=== PATIENT | female | born 1995 | race Caucasian/White ===

== ENCOUNTER 2017-09-26 08:18 | Emergency (ER) | payer SELFPAY ==
[~2017-09-26] VITALS: Ht 170.2 cm; Wt 59.0 kg
[~2017-09-26 08:18] MED LIST: ACHD5005 PO; CYCL-97 PO; CYCL15CA19 PO; DCS100C PO; FRS325T PO; HYDR-757 PO; IBP600T1 PO; IBUP-1773 PO; NAPR-1071 PO; NITR-65 PO; NORG1TAB14 PO; ONDA8TAB9 PO; OSLT75CRX PO; OXYC-12 PO; OXYC-471 PO; PEDI100T PO; PREN-93 PO; PROM25TA14 PO; TRAM-42 PO
--- OUTSIDE RECORDS SUMMARY | 2017-09-26 08:24 | XMS REPORT ---
Author Author EUNICE ROBERTS Organization [employer] Address Unknown Phone Unavailable Care Team Providers Care Take Off Worker Name Role Phone EUNICE ROBERTS CP Unavailable Allergies, Adverse Reactions, Alerts Substance Reaction Event Type N.K.D.A. Info Not Available Non Drug Allergy Problems Problem Type Condition Code Onset Dates Condition Status Problem General counseling for prescription of oral contraceptives V25.01 Active Problem Counseling on other sexually transmitted diseases V65.45 Active Problem Screening examination for venereal disease V74.5 Active Assessment Sore throat J02.9 Active Assessment Pharyngitis, unspecified etiology J02.9 Active Medications Medication Code System Code Instructions Start Date End Date Status Dosage Ortho-Novum (28 [facility] [address]-09 1-35 mg-mcg Oct 11, 2011 1 tablet by Oral route 1 time per daystart Monday after next menses Procedures Procedure Coding System Code Date Office Visit, Est Pt., Level 3 CPT-4 97896 Jun 03, 2016 STREP A ASSAY W/OPTIC CPT-4 31437 Jun 03, 2016 Vital Signs Date/Time: Jun 03, 2016 Cardiac Monitoring Heart Rate 84 bpm Weight 124.6 lbs Height 66 in BMI 20.11 Index Blood Pressure Diastolic 70 mmHg Blood Pressure Systolic 104 mmHg Results Name Result Date Reference Range Unit Abnormality Flag STREP A (IN HOUSE) ----STREP A NEG [id number] ----Control + [id number] ----Lot # [id number] ----Exp date 02/09/201820160603 Summary Purpose [employer] Submission
--- OUTSIDE RECORDS SUMMARY | 2017-09-26 08:24 | XMS REPORT ---
Author Author SNEHAL ZAMBRANO [facility] Address Unknown Care Team Providers Care Alteration Manager Name Role Phone JUAN MANUEL SNEHAL Unavailable PROBLEMS Type Condition ICD9-CM Code NPA22-UG Code Onset Dates Condition Status SNOMED Code Problem Dental caries K02.9 Active 49818736 Problem GERD (gastroesophageal reflux disease) K21.9 Active 455141128 Problem Encounter for dental examination Z01.20 Active 859411485 Problem Screen for STD (sexually transmitted disease) Z11.3 Active 233858366 Problem Encounter for screening for malignant neoplasm of cervix Z12.4 Active 382466399 Problem Encounter for screening breast examination Z12.39 Active 327737976 Problem Encounter for well woman exam with routine gynecological exam Z01.419 Active [id number] ALLERGIES No Known Allergies SOCIAL HISTORY Never Assessed PLAN OF CARE Activity Details Follow Up prn Reason:GILBERT VITAL SIGNS Blood pressure systolic 116 mmHg 2016-10-04 Blood pressure diastolic 65 mmHg 2016-10-04 MEDICATIONS No Known Medications RESULTS No Results PROCEDURES Procedure Date Ordered Result Body Site LTD ORAL EVALUATION - PROBLEM FOCUS Oct 04, 2016 INTRAORL-PERIAPICAL 1 FILM [id number] Oct 04, 2016 IMMUNIZATIONS No Known Immunizations MEDICAL (GENERAL) HISTORY Type Description Date Medical History pneumonia Medical History bronchitis Surgical History ovarian cyst resection 2015 Surgical History right oopherectomy 2015 Surgical History section x2 Hospitalization History pneumonia 2010
--- OUTSIDE RECORDS SUMMARY | 2017-09-26 08:25 | XMS REPORT ---
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 Info Not Available Non Drug Allergy Problems Problem Type Condition Code Onset Dates Condition Status Assessment Dental caries K02.9 Active Assessment Screen for STD (sexually transmitted disease) Z11.3 Active Assessment Encounter for screening breast examination Z12.39 Active Problem Encounter for screening for malignant neoplasm of cervix Z12.4 Active Problem Screen for STD (sexually transmitted disease) Z11.3 Active Problem Encounter for well woman exam with routine gynecological exam Z01.419 Active Assessment Encounter for well woman exam with routine gynecological exam Z01.419 Active Assessment Encounter for screening for malignant neoplasm of cervix Z12.4 Active Problem Encounter for screening breast examination Z12.39 Active Problem Dental caries K02.9 Active Medications No Known Medications Procedures Procedure Coding System Code Date CULTURE, BACTERIA, OTHER CPT-4 42334 Jun 15, 2016 TRICHOMONAS ASSAY W/OPTIC CPT-4 85339 Jun 15, 2016 No Charge CPT-4 00446 Jun 15, 2016 Office Visit, Est Pt., Level 3 CPT-4 51589 Jun 15, 2016 AGUIRRE VAG, DNA, DIR PROBE CPT-4 14691 Jun 15, 2016 SPECIMEN HANDLING CPT-4 78135 Jun 15, 2016 Vital Signs Date/Time: Jun 15, 2016 Blood Pressure Systolic 110 mmHg Cardiac Monitoring Heart Rate 80 bpm Weight 117 lbs Blood Pressure Diastolic 70 mmHg Results Name Result Date Reference Range Unit Abnormality Flag PAP TEST, HPV IF ASCUS ----. . [id number] CULTURE, GENITAL ----Genital Culture, Routine Final report [id number] TRICHOMONAS (IN HOUSE) ----TRICHOMONAS Negative [id number] ----Control + [id number] ----Lot # [id number] ----Exp date [id number] BACTERIAL VAGINOSIS (IN HOUSE) ----Exp date [id number] ----Control + [id number] ----Lot # [id number] ----RESULTS Negative [id number] GC/CHLAM PROBE (STATE) PDF Report ----PDF Report1 [facility] [id number] Summary Purpose [employer] Submission
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
[2017-09-26] MEDS ORDERED: LACTATED RINGERS 1,000 ML IV ONE (08:42)
[2017-09-26] MEDS ORDERED: ONDANSETRON 4 MG/2 ML (SDV) Z0FRAN IVP ONE (08:45)
[2017-09-26] MEDS ORDERED: KETOROLAC 30 MG/ML VIAL IVP ONE (08:45)
--- NOTE | 2017-09-26 08:51 | ED Abdominal Pain ---
General Chief Complaint: Abdominal/GI Problems Stated Complaint: LOWER ABD PAIN Source of Information: Patient, Other Exam Limitations: No Limitations History of Present Illness Date Seen by Provider: Sep 26, 2017 Time Seen by Provider: 08:41 Initial Comments Patient presents ER by private conveyance with a chief complaint the past 3 or 4 days of progressively worsening symptoms from her chronic problem of abdominal pain nausea vomiting and diarrhea and heartburn. She says she's had this for the past 3 or 4 years and she is seen about a month and a half ago at the [facility] and they told her a list of things that might be check some urine but not really tolerating anything else until her follow-up if it got worse. She came in today because she been using omeprazole 3 times a day and that was controlling her symptoms but she does not feel is helping anymore and she is started to feel little dehydrated and having a lot of abdominal pain especially in her superpubic region. She's having nonbloody diarrhea and nausea with nonbloody emesis. She's had some chills a few times but no documented fever. Allergies and Home Medications Allergies Coded Allergies: No Known Drug Allergies (Unverified , 11/16/09) Home Medications Naproxen 500 Mg Tablet, 500 MG PO BID PRN for PAIN, #30 Prescribed by: OLIVIA CRYSTAL on 06/17/16 1434 Norgestimate-Ethinyl Estradiol 1 Each Tablet, 1 EACH PO UD, #1 Take per package directions Prescribed by: NORMA LOYA on 06/24/16 1615 Oxycodone HCl/Acetaminophen 1 Each Tablet, 1 EACH PO Q6H PRN for PAIN, #14 Prescribed by: NORMA LOYA on 06/24/16 1615 Oxycodone HCl/Acetaminophen 1 Each Tablet, 1 EACH PO Q6H PRN for PAIN, #12 Ref 0 Prescribed by: NORMA LOYA on 07/01/16 1017 Promethazine HCl 25 Mg Tablet, 25 MG PO Q8H PRN for NAUSEA/VOMITING, #14 Prescribed by: NORMA LOYA on 07/01/16 1017 Tramadol HCl 50 Mg Tablet, 50 MG PO Q6H PRN for PAIN, #14 Prescribed by: OLIVIA CRYSTAL on 06/17/16 1434 Review of Systems Constitutional: chills, No diaphoresis, No fever, No malaise EENTM: No Symptoms Reported Respiratory: Denies Cough, Denies Shortness of Air Cardiovascular: Denies Chest Pain, Denies Palpitations Gastrointestinal: See HPI, Denies Abdomen Distended, Abdominal Pain, Denies Constipated, Diarrhea, Poor Fluid Intake, Vomiting Genitourinary: Burning, Denies Discharge Musculoskeletal: No back pain, No joint pain Skin: No pruritus, No rash Psychiatric/Neurological: Denies Headache, Denies Numbness, Denies Paresthesia Past Lfzggcs-Ywfwkm-Aawpux Hx Patient Social History Alcohol Use: Denies Use Recreational Drug Use: No Smoking Status: Current Everyday Smoker Recent Foreign Travel: No Contact w/Someone Who Travel: No Recent Hopitalizations: Yes (ER VISIT) Immunizations Up To Date Tetanus Booster (TDap): Less than 5yrs Date of Influenza Vaccine: Jun 22, 2013 Surgeries History of Surgeries: Yes (RIGHT OVERY AND FALLOPIAN TUBE REMOVED) Surgeries: Section Respiratory History of Respiratory Disorde: No Cardiovascular History of Cardiac Disorders: No Neurological History of Neurological Disord: No Reproductive System Hx Reproductive Disorders: Yes Female Reproductive Disorders: Ovarian Cyst [employer] History: IUD Genitourinary Genitourinary Disorders: Bladder Infection Gastrointestinal History of Gastrointestinal Di: No Musculoskeletal History of Musculoskeletal Dis: Yes (scoliosis) Endocrine History of Endocrine Disorders: No Cancer History of Cancer: No Psychosocial History of Psychiatric Problem: No Integumentary History of Skin or Integumenta: No Blood Transfusions History of Blood Disorders: No Adverse Reaction to a Blood Tr: No Family Medical History Significant Family History: Cancer, Diabetes Family Medial History: Cancer GRANDPARENTS Family history: Arthritis 03 FATHER 03 MOTHER Family history: Diabetes mellitus 03 MOTHER Family history: Hypertension 03 MOTHER Family history: Thyroid disorder 03 MOTHER Stroke GRANDPARENTS No Family History of: Cataract Congestive heart failure Family history: Asthma Family history: Gastrointestinal disease History of - respiratory disease Psychotic disorder Physical Exam Vital Signs VS - Last 72 Hours, by Label 09/26/17 08:31 Temp 98.1 Pulse 94 Resp 18 B/P (MAP) 108/61 (77) Pulse Ox 98 O2 Delivery Room Air Capillary Refill : General Appearance: WD/WN, no apparent distress HEENT: PERRL/EOMI, pharynx normal (mildly dry) Neck: non-tender, supple, normal inspection Respiratory: chest non-tender, lungs clear, normal breath sounds Cardiovascular: normal peripheral pulses, regular rate, rhythm, no edema Peripheral Pulses: 2+ Radial Pulses (R), 2+ Radial Pulses (L) Gastrointestinal: normal bowel sounds, no organomegaly, guarding, No rebound, tenderness (Rosas's sign positive and tenderness right upper, left upper and left lower quadrants. Some suprapubic tenderness to palpation as well. No obvious hernia.) Progress/Results/Core Measures Results/Orders Lab Results Laboratory Tests Test 09/26/17 08:48 09/26/17 09:04 Range/Units Urine Color YELLOW Urine Clarity CLEAR Urine pH 7 5-9 Urine Specific [place] 1.015 L 1.016-1.022 Urine Protein NEGATIVE NEGATIVE Urine Glucose (UA) NEGATIVE NEGATIVE Urine Ketones NEGATIVE NEGATIVE Urine Nitrite NEGATIVE NEGATIVE Urine Bilirubin NEGATIVE NEGATIVE Urine Urobilinogen NORMAL NORMAL MG/DL Urine Leukocyte Esterase NEGATIVE NEGATIVE Urine RBC (Auto) NEGATIVE NEGATIVE Urine RBC NONE /HPF Urine WBC RARE /HPF Urine Squamous Epithelial Cells 2-5 /HPF Urine Crystals NONE /LPF Urine Bacteria NEGATIVE /HPF Urine Casts NONE /LPF Urine Mucus NEGATIVE /LPF Urine Culture Indicated NO Urine Test NEGATIVE NEGATIVE White Blood Count 10.1 4.3-11.0 10^3/uL Red Blood Count 4.69 4.35-5.85 10^6/uL Hemoglobin 13.7 11.5-16.0 G/DL Hematocrit 39 35-52 % Mean Corpuscular Volume 83 80-99 FL Mean Corpuscular Hemoglobin 29 25-34 PG Mean Corpuscular Hemoglobin Concent 35 32-36 G/DL Red Cell Distribution Width 12.4 10.0-14.5 % Platelet Count 263 130-400 10^3/uL Mean Platelet Volume 11.0 H 7.4-10.4 FL Neutrophils (%) (Auto) 71 42-75 % Lymphocytes (%) (Auto) 21 12-44 % Monocytes (%) (Auto) 6 0-12 % Eosinophils (%) (Auto) 1 0-10 % Basophils (%) (Auto) 0 0-10 % Neutrophils # (Auto) 7.2 1.8-7.8 X 10^3 Lymphocytes # (Auto) 2.1 1.0-4.0 X 10^3 Monocytes # (Auto) 0.7 0.0-1.0 X 10^3 Eosinophils # (Auto) 0.1 0.0-0.3 10^3/uL Basophils # (Auto) 0.0 0.0-0.1 10^3/uL Sodium Level 139 135-145 MMOL/L Potassium Level 3.7 3.6-5.0 MMOL/L Chloride Level 106 98-107 MMOL/L Carbon Dioxide Level 24 21-32 MMOL/L Anion Gap 9 5-14 MMOL/L Blood Urea Nitrogen 12 7-18 MG/DL Creatinine 0.75 0.60-1.30 MG/DL Estimat Glomerular Filtration Rate > 60 BUN/Creatinine Ratio 16 Glucose Level 90 70-105 MG/DL Calcium Level 9.0 8.5-10.1 MG/DL Magnesium Level 2.0 1.8-2.4 MG/DL Total Bilirubin 0.3 0.1-1.0 MG/DL Aspartate Amino Transf (AST/SGOT) 19 5-34 U/L Alanine Aminotransferase (ALT/SGPT) 22 0-55 U/L Alkaline Phosphatase 62 40-136 U/L C-Reactive Protein High Sensitivity 0.01 0.00-0.50 MG/DL Total Protein 7.0 6.4-8.2 GM/DL Albumin 4.2 3.2-4.5 GM/DL Lipase 13 8-78 U/L My Orders Orders - SANTO LOJA Ct Abdomen/Pelvis W (09/26/17 08:42) Cbc With Automated Diff (09/26/17 08:42) Comprehensive Metabolic Panel (09/26/17 08:42) Hs C Reactive Protein (09/26/17 08:42) Hcg,Qualitative Urine (09/26/17 08:42) Magnesium (09/26/17 08:42) Ua Culture If Indicated (09/26/17 08:42) Saline Lock/Iv-Start (09/26/17 08:42) Lactated Ringers (Lr 1000 Ml Iv Solution (09/26/17 08:42) Ketorolac Injection (Toradol Injection) (09/26/17 08:45) Ondansetron Injection (Zofran Injectio (09/26/17 08:45) Iohexol Injection (Omnipaque 350 Mg/Ml 1 (09/26/17 09:00) Sodium Chloride Flush (Catheter Flush Sy (09/26/17 09:00) Lipase (09/26/17 08:51) Urine Bedside (09/26/17 09:15) Medications Given in ED Current Medications Medications Dose Ordered Sig/Odilia Route Start Time Stop Time Status Last Admin Dose Admin Iohexol 100 ml ONCE ONCE IV 09/26/17 09:00 09/26/17 09:37 DC 09/26/17 09:39 100 ML Ketorolac Tromethamine 15 mg ONCE ONCE IVP 09/26/17 08:45 09/26/17 08:46 DC 09/26/17 09:01 15 MG Lactated Ringer's 1,000 ml @ 0 mls/hr Q0M ONCE IV 09/26/17 08:42 09/26/17 08:46 DC 09/26/17 09:01 1,000 MLS/HR Ondansetron HCl 4 mg ONCE ONCE IVP 09/26/17 08:45 09/26/17 08:46 DC 09/26/17 09:00 4 MG Vital Signs/I&O Vital Sign - Last 12Hours 09/26/17 08:31 Temp 98.1 Pulse 94 Resp 18 B/P (MAP) 108/61 (77) Pulse Ox 98 O2 Delivery Room Air Progress Note #1: Time: 08:50 Progress Note History is not classic for gallbladder however colitis could also be in the differential so we'll get a CT scan as opposed to an ultrasound. We'll do with contrast which can evaluate the colon. Progress Note #2: Time: 10:39 Progress Note No evidence of infectious or inflammatory cause of her symptoms. Adhesions may be part of her problems however there is no evidence of any bowel obstruction or herniation at this time on a CT scan. We'll give her some symptomatic medications and recommend she follow up for endoscopy with her primary care physician. Diagnostic Imaging Diagonstic Imaging: CT Plain Films/CT/US/NM/MRI: abdomen, pelvis (with contrast) Comments VIA [facility]. [place], [place] NAME: MARIANNA ZEPEDA [facility] REC#: [id number] PT STATUS: REG ER : 1995 PHYSICIAN: SANTO LOJA MD ADMIT DATE: 09/26/17/ER Draft Date of Exam:09/26/17 CT ABDOMEN/PELVIS W PROCEDURE: CT abdomen and pelvis with contrast. TECHNIQUE: Multiple contiguous axial images were obtained through the abdomen and pelvis after administration of intravenous contrast. INDICATION: Sharp abdominal pain in the periumbilical region as well as nausea and diarrhea. Comparison is made with prior study from 06/17/2016. The lung bases are clear. No focal liver abnormality is identified. The gallbladder is unremarkable. The pancreas and spleen are unremarkable. No adrenal mass is detected. The kidneys are unremarkable. The aorta is nonaneurysmal. The appendix is not well-visualized due to a positive intra-abdominal fat. However, no definite acute inflammatory process is seen. The small and large bowel loops are normal caliber. There is no ascites. The bladder is unremarkable. There is a small follicle involving the left ovary. An IUD is located within the uterus. IMPRESSION: No acute abnormality is identified. Dictated on workstation # [id number] Dict: 09/26/17 0953 Trans: 09/26/17 1016 [facility] [id number] Interpreted by: SNEA JOHNSTON MD Electronically signed by: Reviewed: Reviewed by Me Departure Impression Impression: Primary Impression: Nausea and vomiting Qualified Codes: R11.2 - Nausea with vomiting, unspecified Additional Impression: Diarrhea in adult patient Disposition: 01 HOME, SELF-CARE Condition: Improved Departure-Patient Inst. Decision time for Depature: 10:45 Referrals: COLLETTE BROWN DO [facility] (PCP/Family) Primary Care Physician Patient Instructions: Irritable Bowel Syndrome (DC) Add. Discharge Instructions: Review the handout on irritable bowel syndrome and modify her diet try and avoid things that might irritate your colon. Follow up with your primary care physician and get set up to do colonoscopy and endoscopy for final diagnosis. If you have nausea use the Zofran 1 tablet every 6 hours as needed. If you're having the nausea and diarrhea I suggest the next month we trial hyoscyamine one tablet 30 minutes prior to eating. If you begin to have fevers you should return to care. All discharge instructions reviewed with patient and/or family. Voiced understanding. Scripts Ondansetron (Ondansetron Odt) 4 Mg Tab.rapdis 4 MG PO Q6H Y for NAUSEA/VOMITING, #20 TAB 0 Refills Prov: SANTO LOJA 09/26/17 Hyoscyamine Sulfate (Hyoscyamine Sulfate) 0.125 Mg Tab.rapdis 0.125 MG PO QIDACHS for 30 Days, #120 TAB 0 Refills Prov: SATNO LOJA 09/26/17 Copy Copies To 1: COLLETTE BROWN TITUS J Sep 26, 2017 08:51
[2017-09-26 08:58] LABS: BILIRUBIN,URINE NEGATIVE (NEGATIVE); CLARITY,URINE CLEAR; COLOR,URINE YELLOW; GLUCOSE, URINE (UA) NEGATIVE (NEGATIVE); KETONES,URINE NEGATIVE (NEGATIVE); LEUKOCYTE ESTERASE ,URINE NEGATIVE (NEGATIVE); NITRITE,URINE NEGATIVE (NEGATIVE); PH,URINE 7 (5-9); PROTEIN,URINE NEGATIVE (NEGATIVE); UROBILINOGEN,URINE NORMAL (NORMAL)
[2017-09-26] MEDS ORDERED: IOHEXOL 350 MG/ML 100 ML (OMNIPAQUE 350) VIAL IV ONE (09:00)
[2017-09-26] MEDS ORDERED: CATHETER FLUSH 10 ML SYR IV PRN (09:00)
[2017-09-26 09:05] LABS: BACTERIA,URINE NEGATIVE /HPF; WBC,URINE RARE /HPF
[2017-09-26 09:10] LABS: BASOPHILS % (AUTO) 0 % (0-10); EOSINOPHILS # (AUTO) 0.1 10^3/uL (0.0-0.3); EOSINOPHILS % (AUTO) 1 % (0-10); HEMATOCRIT 39 % (35-52); HEMOGLOBIN 13.7 G/DL (11.5-16.0); LYMPHOCYTES # (AUTO) 2.1 X 10^3 (1.0-4.0); LYMPHOCYTES % (AUTO) 21 % (12-44); MEAN CORPUSCULAR HEMOGLOBIN 29 PG (25-34); MEAN CORPUSCULAR HGB CONC 35 G/DL (32-36); MEAN CORPUSCULAR VOLUME 83 FL (80-99); MONOCYTES # (AUTO) 0.7 X 10^3 (0.0-1.0); MONOCYTES % (AUTO) 6 % (0-12); NEUTROPHILS # (AUTO) 7.2 X 10^3 (1.8-7.8); NEUTROPHILS % (AUTO) 71 % (42-75); PLATELET COUNT 263 10^3/uL (130-400); RED BLOOD COUNT 4.69 10^6/uL (4.35-5.85); RED CELL DISTRIBUTION WIDTH 12.4 % (10.0-14.5); WHITE BLOOD COUNT 10.1 10^3/uL (4.3-11.0)
[2017-09-26 09:49] LABS: ALANINE AMINOTRANSFERASE 22 U/L (0-55); ALBUMIN 4.2 GM/DL (3.2-4.5); ALKALINE PHOSPHATASE 62 U/L (40-136); BILIRUBIN,TOTAL 0.3 MG/DL (0.1-1.0); BUN/CREATININE RATIO 16; CARBON DIOXIDE 24 MMOL/L (21-32); CHLORIDE 106 MMOL/L (98-107); CREATININE SERUM 0.75 MG/DL (0.60-1.30); GFR ESTIMATED > 60; GLUCOSE 90 MG/DL (70-105); LIPASE 13 U/L (8-78); POTASSIUM 3.7 MMOL/L (3.6-5.0); SODIUM 139 MMOL/L (135-145)
--- NOTE | 2017-09-26 10:16 | Diagnostic Imaging Report ---
PROCEDURE: CT abdomen and pelvis with contrast. TECHNIQUE: Multiple contiguous axial images were obtained through the abdomen and pelvis after administration of intravenous contrast. INDICATION: Sharp abdominal pain in the periumbilical region as well as nausea and diarrhea. Comparison is made with prior study from 06/17/2016. The lung bases are clear. No focal liver abnormality is identified. The gallbladder is unremarkable. The pancreas and spleen are unremarkable. No adrenal mass is detected. The kidneys are unremarkable. The aorta is nonaneurysmal. The appendix is not well-visualized due to a positive intra-abdominal fat. However, no definite acute inflammatory process is seen. The small and large bowel loops are normal caliber. There is no ascites. The bladder is unremarkable. There is a small follicle involving the left ovary. An IUD is located within the uterus. IMPRESSION: No acute abnormality is identified. Dictated by: Dictated on workstation # [id number]
[2017-09-26] MEDS ORDERED: ONDA4TAB11 PO (10:48)
[2017-09-26] MEDS ORDERED: HYOS-6 PO (10:48)
[2017-09-26] MEDS ORDERED: HYOSCYAMINE 0.125 MG (LEVSIN) TAB PO ONE (11:00)
[2017-09-26 11:01] VITALS: BP 99/59
== END 2017-09-26 11:01 | disposition home or self-care (01) ==
LOC: EDUNIT# 08:18 → ER 08:20
DX: R11.2 Nausea with vomiting, unspecified (principal); R19.7 Diarrhea, unspecified; F17.200 Nicotine dependence, unspecified, uncomplicated; Z87.59 Personal history of other complications of pregnancy, childbirth and the puerperium; Z90.721 Acquired absence of ovaries, unilateral; Z87.448 Personal history of other diseases of urinary system; Z97.5 Presence of (intrauterine) contraceptive device
CPT/HCPCS: 36415; 74177; 80053; 81000; 83690; 83735; 84703; 85025; 86141; 96361; 96374; 96375; 99283

== ENCOUNTER 2018-08-23 08:57 | Emergency (ER) | payer SELFPAY ==
[~2018-08-23] VITALS: Ht 170.2 cm; Wt 52.2 kg
[~2018-08-23 08:57] MED LIST changes: +HYDR-4226 PO; -HYDR-757 PO; +HYOS-6 PO; +ONDA4TAB11 PO
[2018-08-23] MEDS ORDERED: NS IV 1000 ML 1,000 ML IV ONE (09:17)
[2018-08-23 09:25] LABS: BASOPHILS % (AUTO) 0 % (0-10); EOSINOPHILS # (AUTO) 0.1 10^3/uL (0.0-0.3); EOSINOPHILS % (AUTO) 1 % (0-10); HEMATOCRIT 41 % (35-52); HEMOGLOBIN 14.1 G/DL (11.5-16.0); LYMPHOCYTES # (AUTO) 1.5 X 10^3 (1.0-4.0); LYMPHOCYTES % (AUTO) 16 % (12-44); MEAN CORPUSCULAR HEMOGLOBIN 30 PG (25-34); MEAN CORPUSCULAR HGB CONC 35 G/DL (32-36); MEAN CORPUSCULAR VOLUME 86 FL (80-99); MEAN PLATELET VOLUME 10.6 FL (7.4-10.4); MONOCYTES # (AUTO) 0.7 X 10^3 (0.0-1.0); MONOCYTES % (AUTO) 8 % (0-12); NEUTROPHILS % (AUTO) 75 % (42-75); PLATELET COUNT 243 10^3/uL (130-400); RED BLOOD COUNT 4.74 10^6/uL (4.35-5.85); RED CELL DISTRIBUTION WIDTH 12.4 % (10.0-14.5); WHITE BLOOD COUNT 9.3 10^3/uL (4.3-11.0)
[2018-08-23] MEDS ORDERED: ONDANSETRON 4 MG/2 ML (SDV) Z0FRAN IVP ONE (09:30)
[2018-08-23 09:42] LABS: ALANINE AMINOTRANSFERASE 22 U/L (0-55); ALBUMIN 4.4 GM/DL (3.2-4.5); ALKALINE PHOSPHATASE 55 U/L (40-136); BILIRUBIN,TOTAL 0.5 MG/DL (0.1-1.0); BUN/CREATININE RATIO 11; CALCIUM 9.2 MG/DL (8.5-10.1); CARBON DIOXIDE 23 MMOL/L (21-32); CHLORIDE 107 MMOL/L (98-107); CREATININE SERUM 0.74 MG/DL (0.60-1.30); GFR ESTIMATED > 60; GLUCOSE 94 MG/DL (70-105); LIPASE 8 U/L (8-78); POTASSIUM 4.1 MMOL/L (3.6-5.0); SODIUM 139 MMOL/L (135-145); TOTAL PROTEIN 7.2 GM/DL (6.4-8.2)
[2018-08-23 10:03] LABS: BILIRUBIN,URINE NEGATIVE (NEGATIVE); CLARITY,URINE CLEAR; COLOR,URINE YELLOW; GLUCOSE, URINE (UA) NEGATIVE (NEGATIVE); KETONES,URINE NEGATIVE (NEGATIVE); LEUKOCYTE ESTERASE ,URINE NEGATIVE (NEGATIVE); NITRITE,URINE NEGATIVE (NEGATIVE); PH,URINE 7 (5-9); PROTEIN,URINE NEGATIVE (NEGATIVE); UROBILINOGEN,URINE NORMAL (NORMAL)
[2018-08-23 10:21] LABS: BACTERIA,URINE NEGATIVE /HPF; RBC,URINE RARE /HPF; SQUAMOUS EPITHELIAL CELL,UR RARE /HPF
[2018-08-23] MEDS ORDERED: HYOS0.1283 SL (10:49)
[2018-08-23] MEDS ORDERED: ONDN4T PO (10:49)
--- NOTE | 2018-08-23 10:50 | ED Abdominal Pain ---
General Chief Complaint: Abdominal/GI Problems Stated Complaint: VOMITING;ABD PAIN Nursing Triage Note: pt presents to ed with complaints of n/v x3 days. reports lower abdominal pain as well. Sepsis Screen: No Definite Risk Source of Information: Patient Exam Limitations: No Limitations History of Present Illness Date Seen by Provider: Aug 23, 2018 Time Seen by Provider: 10:46 Initial Comments To ER with nausea vomiting diarrhea cough sore throat runny nose and fever for 3 days. She has intermittent crampy abdominal pain throughout the abdomen but mostly on the right side. Timing/Duration: 2-3 Days Severity/Quality: Moderate, Cramping Radiation: No Radiation Activities at Onset: None Allergies and Home Medications Allergies Coded Allergies: No Known Drug Allergies (Unverified , 11/16/09) Home Medications Hyoscyamine Sulfate 0.125 Mg Tab.rapdis, 0.125 MG PO QIDACHS Prescribed by: SANTO LOJA on 09/26/17 1048 Naproxen 500 Mg Tablet, 500 MG PO BID PRN for PAIN Prescribed by: OLIVIA CRYSTAL on 06/17/16 1434 Norgestimate-Ethinyl Estradiol 1 Each Tablet, 1 EACH PO UD Take per package directions Prescribed by: NORMA LOYA on 06/24/16 1615 Ondansetron 4 Mg Tab.rapdis, 4 MG PO Q6H PRN for NAUSEA/VOMITING Prescribed by: SANTO LOJA on 09/26/17 1048 Oxycodone HCl/Acetaminophen 1 Each Tablet, 1 EACH PO Q6H PRN for PAIN Prescribed by: NORMA LOYA on 06/24/16 1615 Oxycodone HCl/Acetaminophen 1 Each Tablet, 1 EACH PO Q6H PRN for PAIN Prescribed by: NORMA LOYA on 07/01/16 1017 Promethazine HCl 25 Mg Tablet, 25 MG PO Q8H PRN for NAUSEA/VOMITING Prescribed by: NORMA LOYA on 07/01/16 1017 Tramadol HCl 50 Mg Tablet, 50 MG PO Q6H PRN for PAIN Prescribed by: OLIVIA CRYSTAL on 06/17/16 1434 Patient Home Medication List Home Medication List Reviewed: Yes Review of Systems Review of Systems Constitutional: see HPI, chills, fever, malaise EENTM: No Symptoms Reported Respiratory: See HPI, Cough Cardiovascular: No Symptoms Reported Gastrointestinal: See HPI, Abdominal Pain, Diarrhea, Nausea, Vomiting Genitourinary: No Symptoms Reported Musculoskeletal: no symptoms reported Skin: no symptoms reported Psychiatric/Neurological: No Symptoms Reported Endocrine: No Symptoms Reported Hematologic/Lymphatic: No Symptoms Reported Past Tcislvd-Dfucuc-Cxvefk Hx Patient Social History Alcohol Use: Occasionally Uses Recreational Drug Use: No Smoking Status: Current Everyday Smoker Type Used: Cigarettes Recent Foreign Travel: No Contact w/Someone Who Travel: No Recent Infectious Disease Expo: No Recent Hopitalizations: Yes (ER VISIT) Physical Abuse: No Sexual Abuse: No Mistreated: No Fear: No Immunizations Up To Date Tetanus Booster (TDap): Less than 5yrs Date of Influenza Vaccine: Jun 22, 2013 Past Medical History Surgeries: Yes (RIGHT OVERY AND FALLOPIAN TUBE REMOVED) Section Respiratory: No Cardiac: No Neurological: No Reproductive Disorders: Yes Female Reproductive Disorders: Ovarian 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 Bladder Infection Gastrointestinal: No Musculoskeletal: Yes (scoliosis) Scoliosis Endocrine: No HEENT: No Cancer: No Psychosocial: No Integumentary: No Blood Disorders: No Adverse Reaction/Blood Tranf: No Family Medical History Cancer GRANDPARENTS Family history: Arthritis 03 FATHER 03 MOTHER Family history: Diabetes mellitus 03 MOTHER Family history: Hypertension 03 MOTHER Family history: Thyroid disorder 03 MOTHER Stroke GRANDPARENTS No Family History of: Cataract Congestive heart failure Family history: Asthma Family history: Gastrointestinal disease History of - respiratory disease Psychotic disorder Cancer, Diabetes Physical Exam Vital Signs Vital Signs - First Documented 08/23/18 09:21 Temp 97.4 Pulse 93 Resp 20 B/P (MAP) 103/75 (84) Pulse Ox 98 Capillary Refill : Less Than 3 Seconds Height/Weight/BMI Height: 5'7.00" Weight: 115lbs. oz. [id number]; BMI Method:Stated General Appearance: WD/WN, no apparent distress HEENT: PERRL/EOMI, normal ENT inspection, TMs normal Neck: non-tender, full range of motion Respiratory: no respiratory distress, no accessory muscle use Cardiovascular: regular rate, rhythm, no murmur Gastrointestinal: normal bowel sounds, non tender, soft; No distended, No guarding, No rebound, No tenderness Extremities: normal range of motion, non-tender Neurologic/Psychiatric: alert, normal mood/affect, oriented x 3 Skin: normal color, warm/dry Progress/Results/Core Measures Results/Orders Lab Results Laboratory Tests Test 08/23/18 09:18 08/23/18 09:55 Range/Units White Blood Count 9.3 4.3-11.0 10^3/uL Red Blood Count 4.74 4.35-5.85 10^6/uL Hemoglobin 14.1 11.5-16.0 G/DL Hematocrit 41 35-52 % Mean Corpuscular Volume 86 80-99 FL Mean Corpuscular Hemoglobin 30 25-34 PG Mean Corpuscular Hemoglobin Concent 35 32-36 G/DL Red Cell Distribution Width 12.4 10.0-14.5 % Platelet Count 243 130-400 10^3/uL Mean Platelet Volume 10.6 H 7.4-10.4 FL Neutrophils (%) (Auto) 75 42-75 % Lymphocytes (%) (Auto) 16 12-44 % Monocytes (%) (Auto) 8 0-12 % Eosinophils (%) (Auto) 1 0-10 % Basophils (%) (Auto) 0 0-10 % Neutrophils # (Auto) 7.0 1.8-7.8 X 10^3 Lymphocytes # (Auto) 1.5 1.0-4.0 X 10^3 Monocytes # (Auto) 0.7 0.0-1.0 X 10^3 Eosinophils # (Auto) 0.1 0.0-0.3 10^3/uL Basophils # (Auto) 0.0 0.0-0.1 10^3/uL Sodium Level 139 135-145 MMOL/L Potassium Level 4.1 3.6-5.0 MMOL/L Chloride Level 107 98-107 MMOL/L Carbon Dioxide Level 23 21-32 MMOL/L Anion Gap 9 5-14 MMOL/L Blood Urea Nitrogen 8 7-18 MG/DL Creatinine 0.74 0.60-1.30 MG/DL Estimat Glomerular Filtration Rate > 60 BUN/Creatinine Ratio 11 Glucose Level 94 70-105 MG/DL Calcium Level 9.2 8.5-10.1 MG/DL Corrected Calcium 8.9 8.5-10.1 MG/DL Total Bilirubin 0.5 0.1-1.0 MG/DL Aspartate Amino Transf (AST/SGOT) 22 5-34 U/L Alanine Aminotransferase (ALT/SGPT) 22 0-55 U/L Alkaline Phosphatase 55 40-136 U/L Total Protein 7.2 6.4-8.2 GM/DL Albumin 4.4 3.2-4.5 GM/DL Lipase 8 8-78 U/L Urine Color YELLOW Urine Clarity CLEAR Urine pH 7 5-9 Urine Specific [place] 1.005 L 1.016-1.022 Urine Protein NEGATIVE NEGATIVE Urine Glucose (UA) NEGATIVE NEGATIVE Urine Ketones NEGATIVE NEGATIVE Urine Nitrite NEGATIVE NEGATIVE Urine Bilirubin NEGATIVE NEGATIVE Urine Urobilinogen NORMAL NORMAL MG/DL Urine Leukocyte Esterase NEGATIVE NEGATIVE Urine RBC (Auto) 1+ H NEGATIVE Urine RBC RARE /HPF Urine WBC NONE /HPF Urine Squamous Epithelial Cells RARE /HPF Urine Crystals NONE /LPF Urine Bacteria NEGATIVE /HPF Urine Casts NONE /LPF Urine Mucus NEGATIVE /LPF Urine Culture Indicated NO Medications Given in ED Current Medications Medications Dose Ordered Sig/Odilia Route Start Time Stop Time Status Last Admin Dose Admin Ondansetron HCl 8 mg ONCE ONCE IVP 08/23/18 09:30 08/23/18 09:31 DC 08/23/18 09:55 8 MG Sodium Chloride 1,000 ml @ 0 mls/hr Q0M ONCE IV 08/23/18 09:17 08/23/18 09:18 DC 08/23/18 09:55 0 MLS/HR Vital Signs/I&O 08/23/18 09:21 Temp 97.4 Pulse 93 Resp 20 B/P (MAP) 103/75 (84) Pulse Ox 98 Blood Pressure Mean: 84 Departure Impression Primary Impression: Viral syndrome Disposition: 01 HOME, SELF-CARE Condition: Stable Departure-Patient Inst. Decision time for Depature: 10:47 Referrals: [facility] (PCP/Family) Primary Care Physician Patient Instructions: VIRAL SYNDROME Add. Discharge Instructions: 1. Medication as directed 2. Return to ER for any concerns such as worsening right-sided abdominal pain. If abdominal pain does not resolve in the next 2-3 days, follow-up with your primary care provider to discuss an ultrasound to look at the ovaries to evaluate for recurrent cyst 3. Sip on Pedialyte throughout the day to remain hydrated. Blue Pedialyte tastes the best in my opinion All discharge instructions reviewed with patient and/or family. Voiced understanding. Scripts Ondansetron HCl (Zofran) 4 Mg Tab 4 MG PO Q4H PRN for NAUSEA/VOMITING, #10 TAB Prov: OLIVIA CRYSTAL APRN 08/23/18 Hyoscyamine Sulfate (Levsin-Sl) 0.125 Mg Tab.subl 0.125 MG SL Q4H PRN for CRAMPS, #10 TAB Prov: OLIVIA CRYSTAL APRN 08/23/18 Work/School Note: Work Release Form Date Seen in the Emergency Department: Aug 23, 2018 Return to Work: Aug 26, 2018 OLIVIA CRYSTAL APRN Aug 23, 2018 10:50
[2018-08-23] MEDS ORDERED: HYOSCYAMINE 0.125 MG (LEVSIN) TAB PO ONE (11:00)
[2018-08-23 11:10] VITALS: BP 104/70
== END 2018-08-23 11:10 | disposition home or self-care (01) ==
LOC: EDUNIT# 08:57 → ER 08:58
DX: B34.9 Viral infection, unspecified (principal); F17.210 Nicotine dependence, cigarettes, uncomplicated; Z98.890 Other specified postprocedural states; Z90.721 Acquired absence of ovaries, unilateral; Z97.5 Presence of (intrauterine) contraceptive device; Z82.49 Family history of ischemic heart disease and other diseases of the circulatory system
CPT/HCPCS: 36415; 80053; 81000; 83690; 85025; 96361; 96374

== ENCOUNTER 2019-02-22 12:22 | Emergency (ER) | payer SELFPAY ==
[~2019-02-22] VITALS: Ht 170.2 cm; Wt 52.6 kg
[~2019-02-22 12:22] MED LIST changes: +HYOS0.1283 SL; +ONDN4T PO
--- OUTSIDE RECORDS SUMMARY | 2019-02-22 12:27 | XMS REPORT ---
Author Author Migration, Doctor Organization [facility] Address Unknown Phone Unavailable Care Team Providers Care Audiologist Name Role Phone Migration, Doctor Unavailable Unavailable PROBLEMS Type Condition ICD9-CM Code [id number] Code Onset Dates Condition Status SNOMED Code Problem Screen for STD (sexually transmitted disease) Z11.3 Active 520790567 Problem GERD (gastroesophageal reflux disease) K21.9 Active 838972261 Problem Dental caries K02.9 Active 18894507 Problem Encounter for screening for malignant neoplasm of cervix Z12.4 Active 314357406 Problem Encounter for well woman exam with routine gynecological exam Z01.419 Active 780709365 Problem Encounter for screening breast examination Z12.39 Active 897214681 ALLERGIES No Information ENCOUNTERS Encounter Location Date Diagnosis [facility] [address] [phone] 02 Jun, 2017 Gastroenteritis and colitis, viral A08.4 [facility] [address] [phone] Mar, Abdominal pain R10.9 and GERD (gastroesophageal reflux disease) K21.9 [facility] [id number] [place] [phone] Nov, Dental caries K02.9 [facility] [id number] [place] [address] [phone] Oct, Encounter for dental examination Z01.20 [facility] [id number] [place] [address] [phone] Sep, Dental examination Z01.20 [facility] [id number] [place] [address] [phone] Sep, Dental examination Z01.20 [facility] [id number] [place] [phone] 19 Oct, 2016 Encounter for well woman exam with routine gynecological exam Z01.419 ; Encounter for screening for malignant neoplasm of cervix Z12.4 ; Screen for STD (sexually transmitted disease) Z11.3 ; Encounter for screening breast examination Z12.39 and Dental caries K02.9 [facility] [id number] [address] 07 May, 2016 Sore throat J02.9 and Pharyngitis, unspecified etiology J02.9 [facility] [address] [address] 14 Nov, 2014 [facility] [address] [address] 13 Nov, 2014 [facility] [address] [address] 27 Sep, 2011 [facility] [address] [address] 14 Sep, 2011 IMMUNIZATIONS No Known Immunizations SOCIAL HISTORY Never Assessed REASON FOR VISIT [facility] [place] VITAL SIGNS MEDICATIONS Medication Instructions Dosage Frequency Start Date End Date Duration Status Ortho-Novum (28) 1-35 mg-mcg 1 tablet by Oral route 1 time per daystart Monday after next menses Sep, Active RESULTS No Results PROCEDURES No Known procedures INSTRUCTIONS MEDICATIONS ADMINISTERED No Known Medications MEDICAL (GENERAL) HISTORY Type Description Date Medical History pneumonia Medical History bronchitis Surgical History ovarian cyst resection 2014 Surgical History right oopherectomy 2014 Surgical History section x2 Hospitalization History pneumonia 2010
--- OUTSIDE RECORDS SUMMARY | 2019-02-22 12:27 | XMS REPORT ---
Author Author Migration, Doctor Organization [facility] Address Unknown Phone Unavailable Care Team Providers Care Analytical Scientist Name Role Phone Migration, Doctor Unavailable Unavailable PROBLEMS Type Condition ICD9-CM Code [id number] Code Onset Dates Condition Status SNOMED Code Problem Screen for STD (sexually transmitted disease) Z11.3 Active 188405110 Problem GERD (gastroesophageal reflux disease) K21.9 Active 727061310 Problem Dental caries K02.9 Active 10608858 Problem Encounter for screening for malignant neoplasm of cervix Z12.4 Active 780542765 Problem Encounter for well woman exam with routine gynecological exam Z01.419 Active 979193682 Problem Encounter for screening breast examination Z12.39 Active 325640957 ALLERGIES No Information ENCOUNTERS Encounter Location Date Diagnosis [facility] [address] [address] 02 Jun, 2017 Gastroenteritis and colitis, viral A08.4 [facility] [address] [address] Mar, Abdominal pain R10.9 and GERD (gastroesophageal reflux disease) K21.9 [facility] [id number] [place] [phone] Nov, Dental caries K02.9 [facility] [id number] [place] [address] [phone] Oct, Encounter for dental examination Z01.20 [facility] [id number] [place] [address] [phone] Sep, Dental examination Z01.20 [facility] [id number] [place] [address] [phone] Sep, Dental examination Z01.20 [facility] [id number] [place] [address] 19 Oct, 2016 Encounter for well woman exam with routine gynecological exam Z01.419 ; Encounter for screening for malignant neoplasm of cervix Z12.4 ; Screen for STD (sexually transmitted disease) Z11.3 ; Encounter for screening breast examination Z12.39 and Dental caries K02.9 [facility] [address] [address] 07 May, 2016 Sore throat J02.9 and Pharyngitis, unspecified etiology J02.9 [facility] [address] [address] 14 Nov, 2014 [facility] [address] [place] [phone] 13 Nov, 2014 [facility] [address] [address] 27 Sep, 2011 [facility] [address] [place] [phone] 14 Sep, 2011 IMMUNIZATIONS No Known Immunizations SOCIAL HISTORY Never Assessed REASON FOR VISIT [facility] [place] CARE VITAL SIGNS MEDICATIONS No Known Medications RESULTS No Results PROCEDURES No Known procedures INSTRUCTIONS MEDICATIONS ADMINISTERED No Known Medications MEDICAL (GENERAL) HISTORY Type Description Date Medical History pneumonia Medical History bronchitis Surgical History ovarian cyst resection 2014 Surgical History right oopherectomy 2014 Surgical History section x2 Hospitalization History pneumonia 2010
--- OUTSIDE RECORDS SUMMARY | 2019-02-22 12:27 | XMS REPORT ---
Author Author SAMMY Childs [facility] Address [address] [place] [address] Care Team Providers Care Sales Executive Insurance Name Role Phone navCaroleeJOHN SAMMY Unavailable PROBLEMS Type Condition ICD9-CM Code LVQ39-EE Code Onset Dates Condition Status SNOMED Code Problem GERD (gastroesophageal reflux disease) K21.9 Active 846640784 Problem Screen for STD (sexually transmitted disease) Z11.3 Active 816694326 Problem Encounter for screening for malignant neoplasm of cervix Z12.4 Active 872329335 Problem Dental caries K02.9 Active 75158305 Problem Encounter for screening breast examination Z12.39 Active 407556580 Problem Encounter for well woman exam with routine gynecological exam Z01.419 Active 727437352 ALLERGIES No Known Allergies ENCOUNTERS Encounter Location Date Diagnosis [facility] [id number] [place] [phone] 02 Jun, 2017 Gastroenteritis and colitis, viral A08.4 [facility] [id number] [place] [phone] Mar, Abdominal pain R10.9 and GERD (gastroesophageal reflux disease) K21.9 [facility] [address] [place] [address] [phone] Nov, Dental caries K02.9 [facility] [id number] [place] [address] [phone] Oct, Encounter for dental examination Z01.20 [facility] [id number] [place] [address] [phone] Sep, Dental examination Z01.20 [facility] [id number] [place] [address] [phone] Sep, Dental examination Z01.20 [facility] [id number] [address] 19 May, 2016 Encounter for well woman exam with routine gynecological exam Z01.419 ; Encounter for screening for malignant neoplasm of cervix Z12.4 ; Screen for STD (sexually transmitted disease) Z11.3 ; Encounter for screening breast examination Z12.39 and Dental caries K02.9 [facility] [address] [place] [phone] 07 May, 2016 Sore throat J02.9 and Pharyngitis, unspecified etiology J02.9 [facility] [id number] [place] [phone] 14 Nov, 2014 [id number] [place] [phone] 13 Nov, 2014 [address] [id number] [place] [phone] Sep, [facility] [id number] [place] [phone] 14 Sep, 2011 IMMUNIZATIONS No Known Immunizations SOCIAL HISTORY Never Assessed REASON FOR VISIT left upper quadrant pain for 5 days. last BM 45 minutes ago...pt reports she has very lose stools all the time and goes 3-4 times a day. deines sexual activity. denies dysuria. last menstural period...3 years...pt has IUD. [email or web address] PLAN OF CARE Activity Details Follow Up prn Reason: VITAL SIGNS Height 66 in 2017-03-28 Weight 112.8 lbs 2017-03-28 Temperature 97.6 degrees Fahrenheit 2017-03-28 Heart Rate 74 bpm 2017-03-28 Respiratory Rate 18 2017-03-28 BMI 18.20 kg/m2 2017-03-28 Blood pressure systolic 94 mmHg 2017-03-28 Blood pressure diastolic 60 mmHg 2017-03-28 MEDICATIONS Medication Instructions Dosage Frequency Start Date End Date Duration Status Omeprazole 40 MG Orally Once a day 1 capsule 24h Mar, 30 day(s) Active RESULTS No Results PROCEDURES Procedure Date Ordered Result Body Site URINALYSIS, AUTO, W/O SCOPE Mar 28, 2017 INSTRUCTIONS MEDICATIONS ADMINISTERED No Known Medications MEDICAL (GENERAL) HISTORY Type Description Date Medical History pneumonia Medical History bronchitis Surgical History ovarian cyst resection 2014 Surgical History right oopherectomy 2014 Surgical History section x2 Hospitalization History pneumonia 2011
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
[2019-02-22 12:54] LABS: BASOPHILS % (AUTO) 0 % (0-10); EOSINOPHILS # (AUTO) 0.1 10^3/uL (0.0-0.3); EOSINOPHILS % (AUTO) 1 % (0-10); HEMATOCRIT 40 % (35-52); LYMPHOCYTES # (AUTO) 2.5 X 10^3 (1.0-4.0); LYMPHOCYTES % (AUTO) 27 % (12-44); MEAN CORPUSCULAR HEMOGLOBIN 30 PG (25-34); MEAN CORPUSCULAR HGB CONC 35 G/DL (32-36); MEAN CORPUSCULAR VOLUME 86 FL (80-99); MEAN PLATELET VOLUME 10.7 FL (7.4-10.4); MONOCYTES # (AUTO) 0.7 X 10^3 (0.0-1.0); MONOCYTES % (AUTO) 8 % (0-12); NEUTROPHILS # (AUTO) 5.9 X 10^3 (1.8-7.8); NEUTROPHILS % (AUTO) 64 % (42-75); PLATELET COUNT 247 10^3/uL (130-400); RED CELL DISTRIBUTION WIDTH 12.5 % (10.0-14.5); WHITE BLOOD COUNT 9.3 10^3/uL (4.3-11.0)
[2019-02-22 12:54] LABS: BILIRUBIN,URINE NEGATIVE (NEGATIVE); CLARITY,URINE CLEAR; COLOR,URINE YELLOW; GLUCOSE, URINE (UA) NEGATIVE (NEGATIVE); KETONES,URINE NEGATIVE (NEGATIVE); LEUKOCYTE ESTERASE ,URINE NEGATIVE (NEGATIVE); NITRITE,URINE NEGATIVE (NEGATIVE); PH,URINE 6.5 (5-9); PROTEIN,URINE NEGATIVE (NEGATIVE); UROBILINOGEN,URINE NORMAL (NORMAL)
[2019-02-22 13:05] LABS: ALANINE AMINOTRANSFERASE 19 U/L (0-55); ALBUMIN 4.4 GM/DL (3.2-4.5); ALKALINE PHOSPHATASE 47 U/L (40-136); BILIRUBIN,TOTAL 0.4 MG/DL (0.1-1.0); BUN/CREATININE RATIO 19; CARBON DIOXIDE 21 MMOL/L (21-32); CHLORIDE 106 MMOL/L (98-107); CREATININE SERUM 0.73 MG/DL (0.60-1.30); GFR ESTIMATED > 60; GLUCOSE 90 MG/DL (70-105); POTASSIUM 4.1 MMOL/L (3.6-5.0); SODIUM 136 MMOL/L (135-145); TOTAL PROTEIN 6.9 GM/DL (6.4-8.2)
[2019-02-22 13:05] LABS: BACTERIA,URINE TRACE /HPF; RBC,URINE 0-2 /HPF; WBC,URINE RARE /HPF
--- NOTE | 2019-02-22 13:05 | ED Chest Pain ---
General Chief Complaint: Chest Pain Stated Complaint: CHEST PAIN Nursing Triage Note: PT AMB TO RM 5 WITH COMPLAINT OF MIDDLE LEFT SIDE CHEST PAIN. STATES STARTED AROUND 11AM AFTER WAKING UP. DENIES CARDIAC HX. Nursing Sepsis Screen: No Definite Risk Source: patient Exam Limitations: no limitations History of Present Illness Date Seen by Provider: Feb 22, 2019 Time Seen by Provider: 13:04 Initial Comments To ER with reports of mid left-sided chest pain that began around 11 AM after she awakened. Pain is worsened by deep breathing and with abduction of her left arm. No fevers or chills or cough. She also has a tender nodule to the right lateral upper breast. Timing/Duration: 1-3 hours Severity/Quality: moderate Radiation: no radiation Activities at Onset: none ASA po LIBRARY PAGE: No NTG SL LIBRARY PAGE: No Associated Symptoms: denies symptoms Allergies and Home Medications Allergies Coded Allergies: No Known Drug Allergies (Unverified , 11/16/09) Home Medications Hyoscyamine Sulfate 0.125 Mg Tab.rapdis, 0.125 MG PO QIDACHS Prescribed by: SANTO LOJA on 09/26/17 1048 Hyoscyamine Sulfate 0.125 Mg Tab.subl, 0.125 MG SL Q4H PRN for CRAMPS Prescribed by: OLIVIA CRYSTAL on 08/23/18 1049 Naproxen 500 Mg Tablet, 500 MG PO BID PRN for PAIN Prescribed by: OLIVIA CRYSTAL on 06/17/16 1434 Norgestimate-Ethinyl Estradiol 1 Each Tablet, 1 EACH PO UD Take per package directions Prescribed by: NORMA LOYA on 06/24/16 1615 Ondansetron 4 Mg Tab.rapdis, 4 MG PO Q6H PRN for NAUSEA/VOMITING Prescribed by: SANTO LOJA on 09/26/17 1048 Ondansetron HCl 4 Mg Tab, 4 MG PO Q4H PRN for NAUSEA/VOMITING Prescribed by: OLIVIA CRYSTAL on 08/23/18 1049 Oxycodone HCl/Acetaminophen 1 Each Tablet, 1 EACH PO Q6H PRN for PAIN Prescribed by: NORMA LOYA on 06/24/16 1615 Oxycodone HCl/Acetaminophen 1 Each Tablet, 1 EACH PO Q6H PRN for PAIN Prescribed by: NORMA LOYA on 07/01/16 1017 Promethazine HCl 25 Mg Tablet, 25 MG PO Q8H PRN for NAUSEA/VOMITING Prescribed by: NORMA LOYA on 07/01/16 1017 Tramadol HCl 50 Mg Tablet, 50 MG PO Q6H PRN for PAIN Prescribed by: OLIVIA CRYSTAL on 06/17/16 1434 Patient Home Medication List Home Medication List Reviewed: Yes Review of Systems Review of Systems Constitutional: see HPI EENTM: No Symptoms Reported Respiratory: No Symptoms Reported Cardiovascular: No Symptoms Reported Gastrointestinal: No Symptoms Reported Genitourinary: No Symptoms Reported Musculoskeletal: no symptoms reported Skin: no symptoms reported Psychiatric/Neurological: No Symptoms Reported Endocrine: No Symptoms Reported Hematologic/Lymphatic: No Symptoms Reported Past Lfxtnjz-Xguxsb-Nuizfr Hx Patient Social History Alcohol Use: Denies Use Recreational Drug Use: No Smoking Status: Current Everyday Smoker Type Used: Cigarettes Recent Foreign Travel: No Contact w/Someone Who Travel: No Recent Infectious Disease Expo: No Recent Hopitalizations: No Immunizations Up To Date Tetanus Booster (TDap): Less than 5yrs Date of Influenza Vaccine: Jun 22, 2013 Past Medical History Surgeries: Yes (RIGHT OVERY AND FALLOPIAN TUBE REMOVED) Section Respiratory: No Cardiac: No Neurological: No Reproductive Disorders: Yes Female Reproductive Disorders: Ovarian Cyst CERTIFIED PROSTHETIST/ORTHOTIST History: IUD Bladder Infection Gastrointestinal: No Musculoskeletal: Yes (scoliosis) Scoliosis Endocrine: No HEENT: No Cancer: No Psychosocial: No Integumentary: No Blood Disorders: No Adverse Reaction/Blood Tranf: No Family Medical History Cancer GRANDPARENTS Family history: Arthritis 03 FATHER 03 MOTHER Family history: Diabetes mellitus 03 MOTHER Family history: Hypertension 03 MOTHER Family history: Thyroid disorder 03 MOTHER Stroke GRANDPARENTS No Family History of: Cataract Congestive heart failure Family history: Asthma Family history: Gastrointestinal disease History of - respiratory disease Psychotic disorder Cancer, Diabetes Physical Exam Vital Signs Vital Signs - First Documented 02/22/19 12:30 Temp 98.2 Pulse 71 Resp 11 B/P (MAP) 107/64 (78) Pulse Ox 98 O2 Delivery Room Air Capillary Refill : Less Than 3 Seconds Height, Weight, BMI Height: 5'7.00" Weight: 116lbs. oz. 52.835194tg; BMI Method:Stated General Appearance: No Apparent Distress, WD/WN Respiratory: No Accessory Muscle Use, No Respiratory Distress Cardiovascular: Normal Peripheral Pulses Gastrointestinal: Normal Bowel Sounds, Non Tender, Soft Extremity: Normal Capillary Refill, Normal Inspection Neurologic/Psychiatric: Alert, Oriented x3 Skin: Normal Color, Warm/Dry Other comments There is a palpable nodule in the upper outer quadrant right breast left breast is without palpable nodule. Progress/Results/Core Measures Results/Orders Lab Results Laboratory Tests Test 02/22/19 12:42 02/22/19 12:48 Range/Units White Blood Count 9.3 4.3-11.0 10^3/uL Red Blood Count 4.68 4.35-5.85 10^6/uL Hemoglobin 14.0 11.5-16.0 G/DL Hematocrit 40 35-52 % Mean Corpuscular Volume 86 80-99 FL Mean Corpuscular Hemoglobin 30 25-34 PG Mean Corpuscular Hemoglobin Concent 35 32-36 G/DL Red Cell Distribution Width 12.5 10.0-14.5 % Platelet Count 247 130-400 10^3/uL Mean Platelet Volume 10.7 H 7.4-10.4 FL Neutrophils (%) (Auto) 64 42-75 % Lymphocytes (%) (Auto) 27 12-44 % Monocytes (%) (Auto) 8 0-12 % Eosinophils (%) (Auto) 1 0-10 % Basophils (%) (Auto) 0 0-10 % Neutrophils # (Auto) 5.9 1.8-7.8 X 10^3 Lymphocytes # (Auto) 2.5 1.0-4.0 X 10^3 Monocytes # (Auto) 0.7 0.0-1.0 X 10^3 Eosinophils # (Auto) 0.1 0.0-0.3 10^3/uL Basophils # (Auto) 0.0 0.0-0.1 10^3/uL D-Dimer 0.29 0.00-0.49 UG/ML Sodium Level 136 135-145 MMOL/L Potassium Level 4.1 3.6-5.0 MMOL/L Chloride Level 106 98-107 MMOL/L Carbon Dioxide Level 21 21-32 MMOL/L Anion Gap 9 5-14 MMOL/L Blood Urea Nitrogen 14 7-18 MG/DL Creatinine 0.73 0.60-1.30 MG/DL Estimat Glomerular Filtration Rate > 60 BUN/Creatinine Ratio 19 Glucose Level 90 70-105 MG/DL Calcium Level 9.0 8.5-10.1 MG/DL Corrected Calcium 8.7 8.5-10.1 MG/DL Total Bilirubin 0.4 0.1-1.0 MG/DL Aspartate Amino Transf (AST/SGOT) 15 5-34 U/L Alanine Aminotransferase (ALT/SGPT) 19 0-55 U/L Alkaline Phosphatase 47 40-136 U/L Troponin I < 0.028 <0.028 NG/ML Total Protein 6.9 6.4-8.2 GM/DL Albumin 4.4 3.2-4.5 GM/DL Serum Test, Qualitative NEGATIVE NEGATIVE Urine Color YELLOW Urine Clarity CLEAR Urine pH 6.5 5-9 Urine Specific [place] 1.015 L 1.016-1.022 Urine Protein NEGATIVE NEGATIVE Urine Glucose (UA) NEGATIVE NEGATIVE Urine Ketones NEGATIVE NEGATIVE Urine Nitrite NEGATIVE NEGATIVE Urine Bilirubin NEGATIVE NEGATIVE Urine Urobilinogen NORMAL NORMAL MG/DL Urine Leukocyte Esterase NEGATIVE NEGATIVE Urine RBC (Auto) 1+ H NEGATIVE Urine RBC 0-2 /HPF Urine WBC RARE /HPF Urine Squamous Epithelial Cells 5-10 /HPF Urine Crystals NONE /LPF Urine Bacteria TRACE /HPF Urine Casts NONE /LPF Urine Mucus NEGATIVE /LPF Urine Culture Indicated NO My Orders Orders - OLIVIA CRYSTAL E COMMERCE DIRECTOR Cbc With Automated Diff (02/22/19 12:46) Troponin I (02/22/19 12:46) Fibrin Degradation Products (02/22/19 12:46) Comprehensive Metabolic Panel (02/22/19 12:46) Ua Culture If Indicated (02/22/19 12:46) Hcg,Qualitative Serum (02/22/19 12:46) Ekg Tracing (02/22/19 12:46) Chest 1 View, Ap/Pa Only (02/22/19 13:02) Us Breast Limited Right (02/22/19 13:02) Ketorolac Injection (Toradol Injection) (02/22/19 13:15) Vital Signs/I&O 02/22/19 12:30 Temp 98.2 Pulse 71 Resp 11 B/P (MAP) 107/64 (78) Pulse Ox 98 O2 Delivery Room Air Blood Pressure Mean: 78 Departure Communication (Admissions) NAME: MARIANNA ZEPEDA MED REC#: [id number] PT STATUS: REG ER : 1995 PHYSICIAN: OLIVIA CRYSTAL E COMMERCE DIRECTOR ADMIT DATE: 02/22/19/ER Draft Date of Exam:02/22/19 US BREAST LIMITED RIGHT Indication: Right breast lump. Sonographic surveillance over the region of clinical complaint in the upper outer quadrant 10 o'clock position 4 cm from the nipple reveals an ovoid well-defined hypoechoic superficial nodule measuring 1.7 x 2.0 x 0.7 cm thick. It is wider than it is tall, it is questionable mild blood flow along its margins. It does have a predominant acoustical signature of posterior enhancement without evidence for shadowing. There was no abscess, hematoma or acute fluid collection. There was no ductal ectasia. Impression: Solid-appearing hypoechoic breast nodule corresponds to the area of palpable fullness. The imaging features favor benign fibroadenoma however the benign entity cannot be confirmed. A followup ultrasound in 3 months' time assuming the absence of any adverse interval clinical change recommended. If the lesion should grow over that interval, become painful or become otherwise warranted, lesional sampling could be performed with sonographic guidance. BI-RADS category 3. Three month followup breast ultrasound recommended. At that time bilateral diagnostic mammograms may be indicated based upon potential findings at that ultrasound. Dictated on workstation # [id number] Dict: 02/22/19 1419 Trans: 02/22/19 1445 [facility] [id number] Interpreted by: VIELKA DON Electronically signed by: Oziel Primary Impression: Left-sided chest wall pain Disposition: 01 HOME, SELF-CARE Condition: Stable Departure-Patient Inst. Decision time for Depature: 13:44 Referrals: [facility] (PCP/Family) Primary Care Physician Patient Instructions: Pleuritic Chest Pain (DC) Add. Discharge Instructions: 1. Tylenol and ibuprofen for pain control 2. Return to ER for any concerns. The nodule in the right breast is most likely a benign fibroadenoma you do need to have a repeat ultrasound at the end of April/beginning of May Copy Copies To 1: COLLETTE BROWN PETER J APRN Feb 22, 2019 13:05
[2019-02-22] MEDS ORDERED: KETOROLAC 30 MG/ML VIAL IVP ONE (13:15)
--- NOTE | 2019-02-22 13:35 | Diagnostic Imaging Report ---
Indication: Chest pain. Findings: Lungs are clear. Heart vessels normal. No effusion or pneumothorax. Impression: Negative. Dictated by: Dictated on workstation # [id number]
--- NOTE | 2019-02-22 14:45 | Diagnostic Imaging Report ---
Indication: Right breast lump. Sonographic surveillance over the region of clinical complaint in the upper outer quadrant 10 o'clock position 4 cm from the nipple reveals an ovoid well-defined hypoechoic superficial nodule measuring 1.7 x 2.0 x 0.7 cm thick. It is wider than it is tall, it is questionable mild blood flow along its margins. It does have a predominant acoustical signature of posterior enhancement without evidence for shadowing. There was no abscess, hematoma or acute fluid collection. There was no ductal ectasia. Impression: Solid-appearing hypoechoic breast nodule corresponds to the area of palpable fullness. The imaging features favor benign fibroadenoma however the benign entity cannot be confirmed. A followup ultrasound in 3 months' time assuming the absence of any adverse interval clinical change recommended. If the lesion should grow over that interval, become painful or become otherwise warranted, lesional sampling could be performed with sonographic guidance. BI-RADS category 3. Three month followup breast ultrasound recommended. At that time bilateral diagnostic mammograms may be indicated based upon potential findings at that ultrasound. Dictated by: Dictated on workstation # [id number]
[2019-02-22 15:05] VITALS: BP 73/70
== END 2019-02-22 15:05 | disposition home or self-care (01) ==
LOC: EDUNIT# 12:22 → ER 12:23
DX: R07.89 Other chest pain (principal); F17.210 Nicotine dependence, cigarettes, uncomplicated; Z82.49 Family history of ischemic heart disease and other diseases of the circulatory system
CPT/HCPCS: 36415; 71045; 80053; 81000; 84484; 84703; 85025; 85379; 93005

== ENCOUNTER 2020-09-23 13:10 | Outpatient (CLI) | payer MEDICAID ==
[~2020-09-23] VITALS: Ht 170.2 cm; Wt 63.0 kg
--- NOTE | 2020-09-23 13:19 | NUR ---
MARIANNA ZEPEDA presented to unit via ambulation from ED, accompanied by staff, with c/o FELL. MARIANNA ZEPEDA weighed, gowned, voided, and to bed. EFHM and TOCO applied, VS taken. MARIANNA ZEPEDA oriented to bed controls, call light, TV, heat, and A/C controls.
[2020-09-23 13:45] VITALS: BP 107/58
--- NOTE | 2020-09-23 13:45 | NUR ---
ABDOMEN SOFT, DENIES TENDERNESS WITH PALPATION, NO LEAKING NO BLEEDING. REPORTS PAIN IN LEFT LOWER GROIN. SAME SIDE OF FALL. PATIENT REPORTS FALLING IN HOUSE AROUND 0900 AFTER COMING INSIDE FROM OUTDOORS. LEFT LEG SLIPPING LANDING HER ON LEFT BUTTOCKS. NO BRUISING NOTED.
--- NOTE | 2020-09-23 14:02 | NUR ---
dr vences notified of patient c/o this RN's assessment. new orders received.
--- NOTE | 2020-09-23 14:29 | NUR ---
out of WS WITH D/C INSTRUCTIONS AND PRECAUTIONS IN HAND. NO S/S OF DISTRESS NOTED.
--- NOTE | 2020-09-24 07:54 | Physician Query-Final Dx ---
Clinic Account Progress/Dx Physician Query: Please give diagnosis Please include # weeks gestation Date of Service Sep 23, 2020 at 13:10 ROSA ISELA HAMM Sep 24, 2020 07:54
== END 2020-09-23 14:29 | disposition home or self-care (01) ==
LOC: WSo 13:10 → LDRP 13:10 → WSo 14:29
PROVIDERS: ATTEND Family Medicine
DX: O9A.213 Injury, poisoning and certain other consequences of external causes complicating pregnancy, third trimester (principal); Z3A.00 Weeks of gestation of pregnancy not specified

== ENCOUNTER 2020-11-29 16:29 | Observation (INO) | payer MEDICAID ==
[~2020-11-29] VITALS: Ht 167.7 cm; Wt 67.3 kg
[~2020-11-29 16:29] MED LIST changes: -OXYC-471 PO; +OXYC1TAB11 PO
[2020-11-29 16:45] VITALS: BP 126/63
[2020-11-29 17:07] LABS: BILIRUBIN,URINE NEGATIVE (NEGATIVE); CLARITY,URINE CLEAR; COLOR,URINE YELLOW; GLUCOSE, URINE (UA) NEGATIVE (NEGATIVE); KETONES,URINE 2+ (NEGATIVE); LEUKOCYTE ESTERASE ,URINE NEGATIVE (NEGATIVE); NITRITE,URINE NEGATIVE (NEGATIVE); PROTEIN,URINE NEGATIVE (NEGATIVE)
[2020-11-29] MEDS ORDERED: ONDN4T PO (17:13)
[2020-11-29] MEDS ORDERED: ASPI-999 PO (17:13)
[2020-11-29] MEDS ORDERED: ACET325C7 PO (17:13)
[2020-11-29] MEDS ORDERED: PREN1TAB79 PO (17:13)
[2020-11-29 17:19] LABS: BACTERIA,URINE NEGATIVE /HPF; RBC,URINE RARE /HPF; WBC,URINE RARE /HPF
[2020-11-29] MEDS ORDERED: NS IV 1000 ML 1,000 ML IV SCH (17:30)
[2020-11-29 17:46] VITALS: BP 107/56
[2020-11-29] MEDS ORDERED: TERBUTALINE INJ 1 MG/ML (BRETHINE) AMP SC ONE (18:45)
[2020-11-29] MEDS: NS IV 1000 ML 1,000 ML IV SCH (18:49)
[2020-11-30] MEDS: NS IV 1000 ML 1,000 ML IV SCH (03:19)
[2020-11-30 06:25] VITALS: BP 108/54
[2020-11-30 07:42] VITALS: BP 107/53
--- NOTE | 2020-11-30 10:07 | Physician Query-Final Dx ---
Clinic Account Progress/Dx DIAGNOSIS: Date Seen by Provider: Nov 30, 2020 Time Seen by Provider: 10:04 32 wk GA previous contractions not in active labor/no cervical change Gestational Age in Weeks: 32 Progress Note: Initially felt contractions which were 2-10 min apart but felt mild. Treated with IVF and 1 dose of terbutaline. Continue to have irregular contractions but patient has not felt contractions since last night. No cervical change - pt is finger tip, posterior. Discussed pelvic rest and reducing activity and staying hydrated. Will DC to home and f/u with Dr. Webb in the clinic. COLLETTE BROWN DO Nov 30, 2020 10:07
[2020-11-30 11:02] VITALS: BP 107/53
== END 2020-11-30 11:02 | disposition home or self-care (01) ==
LOC: LDRP 16:29 → WSo 16:29 → LDRP 16:36 → WSo 11-30 07:00 → LDRP 11-30 07:01
PROVIDERS: ADMIT Family Medicine; ATTEND Family Medicine
DX: O62.4 Hypertonic, incoordinate, and prolonged uterine contractions (principal); Z3A.32 32 weeks gestation of pregnancy
CPT/HCPCS: 81000

== ENCOUNTER 2021-01-06 05:36 | Outpatient (CLI) | payer MEDICAID ==
[~2021-01-06] VITALS: Ht 170.2 cm; Wt 70.5 kg
[~2021-01-06 05:36] MED LIST changes: +ACET325C7 PO; +ASPI-999 PO; +PREN1TAB79 PO
[2021-01-13] MEDS ORDERED: DCS100C PO (08:22)
[2021-01-13] MEDS ORDERED: IBUP-844 PO (08:22)
[2021-01-13] MEDS ORDERED: ACHD5005 PO (08:22)
== END 2021-01-07 11:45 ==
LOC: PREOP 05:36
PROVIDERS: ATTEND Obstetrics & Gynecology
DX: Z01.818 Encounter for other preprocedural examination (principal); O34.219 Maternal care for unspecified type scar from previous cesarean delivery

== ENCOUNTER 2021-01-13 06:30 | Inpatient (IN) | payer MEDICAID ==
[2021-01-13] VITALS (11 sets, daily range): BP systolic 93–120; BP diastolic 52–92
[~2021-01-13] VITALS: Ht 170.2 cm; Wt 71.8 kg
[~2021-01-13 06:30] MED LIST changes: +CITRIC ACID/SOB CIT (BICITRA) 30 ML UDC ONE; +FAMOTIDINE 20MG/2ML IV (PEPCID) ONE; +METOCLOPRAMIDE INJ 10 MG/2 ML (REGLAN) ONE; +ceFAZolin 2 GM IV Premixed 50 ML ONE
[2021-01-13] MEDS ORDERED: CITRIC ACID/SOB CIT (BICITRA) 30 ML UDC PO ONE (06:45)
[2021-01-13] MEDS ORDERED: ceFAZolin 2 GM IV Premixed 50 ML IV ONE ×2 (06:45)
[2021-01-13] MEDS ORDERED: LACTATED RINGERS 1,000 ML IV PRN (06:45)
[2021-01-13] MEDS ORDERED: FAMOTIDINE 20MG/2ML IV (PEPCID) IV ONE (06:45)
[2021-01-13] MEDS ORDERED: METOCLOPRAMIDE INJ 10 MG/2 ML (REGLAN) IV ONE (06:45)
[2021-01-13] MEDS: LACTATED RINGERS 1,000 ML IV PRN ×2 (06:58→08:45)
[2021-01-13 07:14] LABS: BASOPHILS % (AUTO) 0 % (0-10); EOSINOPHILS # (AUTO) 0.1 10^3/uL (0.0-0.3); EOSINOPHILS % (AUTO) 1 % (0-10); HEMATOCRIT 33 % (35-52); HEMOGLOBIN 11.1 g/dL (11.5-16.0); LYMPHOCYTES # (AUTO) 2.8 10^3/uL (1.0-4.0); LYMPHOCYTES % (AUTO) 17 % (12-44); MEAN CORPUSCULAR HEMOGLOBIN 30 pg (25-34); MEAN CORPUSCULAR HGB CONC 34 g/dL (32-36); MEAN CORPUSCULAR VOLUME 87 fL (80-99); MEAN PLATELET VOLUME 11.1 fL (9.0-12.2); MONOCYTES % (AUTO) 6 % (0-12); NEUTROPHILS # (AUTO) 12.5 10^3/uL (1.8-7.8); NEUTROPHILS % (AUTO) 75 % (42-75); PLATELET COUNT 355 10^3/uL (130-400); WHITE BLOOD COUNT 16.6 10^3/uL (4.3-11.0)
[2021-01-13 07:39] LABS: BAND NEUTROPHILS 1 %; BASOPHILS % (MANUAL) 0 %; EOSINOPHILS % (MANUAL) 1 %; LYMPHOCYTES % (MANUAL) 15 %; MONOCYTES % (MANUAL) 4 %; NEUTROPHILS % (MANUAL) 79 %; RBC MORPH NORMAL
--- NOTE | 2021-01-13 08:02 | History & Physical-OB ---
OB - Chief Complaint & HPI Date/Time Date of Admission: Date of Admission: January 13, 2021 at 06:30 Date seen by a Provider: January 13, 2021 Time Seen by a Provider: 07:55 Chief Complaint/History OB-Reason for Admission/Chief: Section Hx : 3 Hx Para: 2 Expected Date of Delivery: January 20, 2021 Gestational Age in Weeks: 39 Gestational Age in Days: 0 Indication for : desires repeat Admission Nurse Assessment Rev: Yes History of Labs A pos Antibody neg Allergies and Home Medications Allergies Coded Allergies: No Known Drug Allergies (Unverified , 11/16/09) Home Medications Vit W-Ca,Fe,FA(<1 mg) 1 Each Tablet, 1 EACH PO DAILY, (Reported) Patient Home Medication List Home Medication List Reviewed: Yes OB - History Hx of Present Care: Yes Ultrasounds: Normal mid trimester US Obstetrical Complications: None Medical Complications: None Obstetrical History Hx Termination: No Hx Multiple Gestation: No Hx Stillbirth: No Hx Complication: No Hx Induced Hypertens: No Hx Maternal Gestational Diabet: No Delivery History Hx Dystocia: No Hx Large For Gestational Age I: No Hx Small for Gestational Age I: No Hx Section: Yes (Breech) Hx Vaginal Delivery Post C-Sec: No Hx Blood Disorders: No Adverse Rxn to Tranfusion: No Patient Past Medical History Previous section Social History/Family History 2nd Hand Smoke Exposure: No Immunizations Hepatitis A: Yes Hepatitis B: Yes Tetanus Booster (TDap): Less than 5yrs Date of Influenza Vaccine: Jun 22, 2013 OB - Admission Exam Physical Exam Vitals: Vital Signs 01/13/21 07:09 Temp 36.8 Pulse 93 Resp 16 B/P (MAP) 120/60 (80) Pulse Ox 98 O2 Delivery Room Air HEENT: NCAT Heart: Rhythm Normal Lungs: Clear Abdomen: Gravid Extremities: Normal Reflexes: Normal Membranes: Intact Heart Rate: 130's Accelerations: Accelerations Present Decelerations: No Decelerations Short Term Variability: Present Training And Development Director Variability: Average (6-25) Contractions on Admission: >10 Minutes Apart Intensity: Mild Labs Laboratory Tests Test 01/13/21 06:55 Range/Units White Blood Count 16.6 H 4.3-11.0 10^3/uL Red Blood Count 3.74 L 3.80-5.11 10^6/uL Hemoglobin 11.1 L 11.5-16.0 g/dL Hematocrit 33 L 35-52 % Mean Corpuscular Volume 87 80-99 fL Mean Corpuscular Hemoglobin 30 25-34 pg Mean Corpuscular Hemoglobin Concent 34 32-36 g/dL Red Cell Distribution Width 13.6 10.0-14.5 % Platelet Count 355 130-400 10^3/uL Mean Platelet Volume 11.1 9.0-12.2 fL Immature Granulocyte % (Auto) 1 % Neutrophils (%) (Auto) 75 42-75 % Lymphocytes (%) (Auto) 17 12-44 % Monocytes (%) (Auto) 6 0-12 % Eosinophils (%) (Auto) 1 0-10 % Basophils (%) (Auto) 0 0-10 % Neutrophils # (Auto) 12.5 H 1.8-7.8 10^3/uL Lymphocytes # (Auto) 2.8 1.0-4.0 10^3/uL Monocytes # (Auto) 1.0 0.0-1.0 10^3/uL Eosinophils # (Auto) 0.1 0.0-0.3 10^3/uL Basophils # (Auto) 0.0 0.0-0.1 10^3/uL Immature Granulocyte # (Auto) 0.2 H 0.0-0.1 10^3/uL Neutrophils % (Manual) 79 % Lymphocytes % (Manual) 15 % Monocytes % (Manual) 4 % Eosinophils % (Manual) 1 % Basophils % (Manual) 0 % Band Neutrophils 1 % Blood Morphology Comment NORMAL OB - Assessment/Plan/Diagnosis Assessment Assessment: section Admission Dx 25 yo @ 39 weeks Previous Admission Status: Inpatient Order (span 2 midnights) Reason for Inpatient Admission: Repeat at 39 weeks Plan Plan: Section SBNATI Francia DO January 13, 2021 08:02
[2021-01-13] MEDS ORDERED: MEASLES,MUMPS,RUBELLA 1 EA INJ SC SCH (08:15)
[2021-01-13] MEDS ORDERED: TETANUS,DIPTH,PERTUSS P/F (BOOSTRIX) 0.5 ML VIAL IM SCH (08:15)
[2021-01-13] MEDS ORDERED: ONDANSETRON 4 MG/2 ML (SDV) Z0FRAN IVP PRN (08:15)
--- NOTE | 2021-01-13 08:16 | Discharge Inst-Women's Service ---
Discharge Inst-Women's Serv Depart Medication/Instructions New, Converted or Re-Newed RX: RX on Chart Final Diagnosis POD 2 RLTCS Problems Reviewed?: Yes Consults/Follow Up Additional Follow Up: Yes Orders/Referrals DR. Guzman in 7-[address] Webb in 6 weeks Activity Activity: Activity as Tolerated Driving Instructions: No Driving for 1 Week NO SMOKING: NO SMOKING Nothing Inside Vagina: No Douching, No Comfrey, No Tampons Diet Discharge Diet: No Restrictions Symptoms to Report to : Bleeding Excessive, Pain Increased, Fever Over 101 Degrees F, Vaginal Bleeding Increase, Questions/Concerns For Any Problems or Questions: Contact Your Physician Skin/Wound Care Infection Signs and Symptoms: Increased Redness, Foul Odor of Wound, Increased Drainage, Skin Itchy or Has a Rash, Increased Swelling, Temperature Above 101 F Operative Area Clean and Dry: Keep Incision Clean/Dry Stitches/Adolphus/Dermabond: Dermabond, Care of Stitches Bathing Instructions: NATI Miller DO January 13, 2021 08:16
[2021-01-13] MEDS ORDERED: IBUP-844 PO (08:22)
[2021-01-13] MEDS ORDERED: DCS100C PO (08:22)
[2021-01-13] MEDS ORDERED: ACHD5005 PO (08:22)
[2021-01-13] MEDS ORDERED: fentaNYL INJ 100 MCG/2 ML AMP ONE (08:28)
[2021-01-13] MEDS ORDERED: BUPIVACAINE 0.25% 30 ML (SENSORCAINE) VIAL ONE (09:07)
[2021-01-13] MEDS ORDERED: ONDANSETRON 4 MG/2 ML (SDV) Z0FRAN ONE (09:17)
[2021-01-13] MEDS: OXYTOCIN PRE-MIX DRIP 500 ML IV SCH ×2 (09:42→14:04)
[2021-01-13] MEDS: KETOROLAC 30 MG/ML VIAL IV SCH ×3 (10:52→23:35)
[2021-01-13] MEDS: HYDROcodone/APAP 5 MG/325 MG (LORTAB) TAB PO PRN ×2 (12:33→18:23)
[2021-01-13] MEDS: DOCUSATE SODIUM 100 MG (COLACE) CAP PO SCH ×2 (12:33→21:40)
[2021-01-13] MEDS ORDERED: CATHETER FLUSH 10 ML SYR IV SCH (14:00)
--- NOTE | 2021-01-13 20:17 | OPERATIVE REPORT ---
DATE OF SERVICE: PREOPERATIVE DIAGNOSES: 1. A 25-year-old G3, P2 at 39 weeks gestation. 2. Previous section x2. POSTOPERATIVE DIAGNOSES: 1. A 25-year-old G3, P2 at 39 weeks gestation. 2. Previous section x2. PROCEDURE: Repeat low transverse section. SURGEON: Luc Basurto DO ANESTHESIA: Spinal. ESTIMATED BLOOD LOSS: 300 mL. URINE OUTPUT: 500 mL clear at the end of the procedure. FLUIDS: 1000 mL lactated Ringer's solution. FINDINGS: A live female infant weighing 6 pounds 6 ounces, Apgars of 9 and 9. Grossly normal appearing uterus, normal appearing left tube and ovary. Right tube and ovary are absent. SPECIMEN SENT: None. INDICATIONS FOR PROCEDURE: This 25-year-old female was a patient who had sought care with Dr. Webb at the [facility]. She was scheduled with me for consultation for repeat and scheduled for the procedure at 39 weeks. Her was uncomplicated leading up to her scheduled . Risks of the procedure had been discussed with the patient in detail including risk of bleeding, infection, damage to surrounding structures including, but not limited to bowel, bladder, ureter, kidneys, possible need for reoperation, risk from anesthesia and even . After everything was discussed with the patient in detail, consent was obtained in the preoperative area and the patient was taken to the operating room. OPERATIVE REPORT IN DETAIL: Once in the operating room, spinal analgesia was found to be adequate. She was placed in supine position with leftward tilt, prepped and draped in normal sterile fashion. A timeout was performed and anesthesia was tested. I then make a Pfannenstiel skin incision through a previously existing scar using knife and carried down to underlying fascia using Bovie cautery. The fascial incision extended laterally using Bovie cautery. Superior aspect of fascial incision was then grasped with Yazmin clamps, tented up and dissected off the underlying rectus muscles. The inferior aspect of the fascial incision was then grasped with Yazmin clamps, tented up and dissected off the underlying rectus muscles. Rectus muscle dissected down the midline using Rajput scissors, which exposed the peritoneum, which I entered bluntly and extended using blunt traction. An Billy ring retractor was placed in the peritoneal incision, which offers excellent lateral sidewall retraction. I identified the lower uterine segment, which was found to be thinned out. I make a low transverse incision to the vesicouterine peritoneum and bluntly dissected this off the lower uterine segment, creating a bladder flap. I then proceeded with my myotomy until membranes were visualized, at which point I extended the uterine incision laterally and superiorly using bandage scissors. Amniotomy was then performed using Allis clamp. Clear fluid was noted. The was found in vertex presentation. With gentle fundal pressure, the infant's head was elevated up the incision where it was delivered through the incision. The nares and oropharynx were bulb suctioned. Anterior and posterior shoulders are delivered and the was then brought to the operative field where the cord was doubly clamped and cut, and the was handed off to waiting nurses in attendance. Cord blood was collected, 3-vessel cord with intact placenta was delivered spontaneously thereafter. IV Pitocin was initiated to facilitate uterine contraction. Uterine fundus became firmer with bimanual massage. Uterus was then exteriorized and cleared of all endometrial clots and debris. I then proceeded with closing the uterine incision using 0 Vicryl suture in running locked fashion. Second layer of imbricating 0 Monocryl was placed. Excellent hemostasis was noted after doing this. I then placed the uterus back within the pelvis and copiously irrigated the pelvis using normal saline. Once again, there was no active bleeding noted from any of my dissection planes. I placed Interceed antiadhesive over my low transverse incision. I then proceeded with removing the Billy ring retractor and closing the peritoneum using 3-0 Vicryl suture in running fashion. The rectus muscles were reapproximated using 3-0 Vicryl suture in interrupted fashion. The fascia was reapproximated using 0 Vicryl suture in running fashion. The subcutaneous tissue was reapproximated using 3-0 plain interrupted subcutaneous stitch and skin reapproximated using 4-0 Monocryl running subcuticular. Dermabond was applied to incision and sterile dressing with adhesive white tape. The patient tolerated the procedure well and was taken to recovery area in stable condition. Lap and sponge counts were correct at the end of the procedure. Instrument counts correct as well. Two grams of Ancef were given preoperatively for infection prophylaxis. Job ID: [id number] DocumentID: [id number] Dictated Date: 01/13/2021 13:15:42 Banking And Finance Instructor Date: 01/13/2021 20:16:13 Dictated By: LUC BASURTO DO
[2021-01-14] MEDS: HYDROcodone/APAP 5 MG/325 MG (LORTAB) TAB PO PRN ×3 (00:42→20:40)
[2021-01-14 00:45] VITALS: BP 110/53
[2021-01-14 05:10] VITALS: BP 113/56
[2021-01-14 05:38] LABS: BASOPHILS # (AUTO) 0.1 10^3/uL (0.0-0.1); BASOPHILS % (AUTO) 0 % (0-10); EOSINOPHILS # (AUTO) 0.1 10^3/uL (0.0-0.3); EOSINOPHILS % (AUTO) 1 % (0-10); HEMATOCRIT 31 % (35-52); HEMOGLOBIN 10.2 g/dL (11.5-16.0); LYMPHOCYTES # (AUTO) 2.1 10^3/uL (1.0-4.0); LYMPHOCYTES % (AUTO) 12 % (12-44); MEAN CORPUSCULAR HEMOGLOBIN 29 pg (25-34); MEAN CORPUSCULAR HGB CONC 33 g/dL (32-36); MEAN CORPUSCULAR VOLUME 87 fL (80-99); MEAN PLATELET VOLUME 11.5 fL (9.0-12.2); MONOCYTES % (AUTO) 6 % (0-12); NEUTROPHILS % (AUTO) 80 % (42-75); PLATELET COUNT 317 10^3/uL (130-400); WHITE BLOOD COUNT 17.4 10^3/uL (4.3-11.0)
[2021-01-14] MEDS: KETOROLAC 30 MG/ML VIAL IV SCH (05:38)
--- NOTE | 2021-01-14 08:28 | Postpartum Progress Note ---
Note Note Day # 1 Subjective: Patient is without complaints. Ambulating, voiding. Tolerating a regular diet without nausea or vomiting. Normal lochia. Pain is well controlled with oral pain medications. Objective: Physical Exam: General - Alert and oriented, no apparent distress Abdomen - Soft, appropriately tender to palpation, non-distended, fundus firm at umbilicus Extremities - no edema, negative Sendy's bilaterally Incision- c/d/i Assessment: POD 1 RLTCS Acute blood loss anemia Plan: Routine care. Encourage breast feeding. Encourage ambulation. Ferrous sulfate supplementation. Plan for discharge tomorrow Vitals - Labs Vital Signs - I&O Vital Signs Date Time Temp Pulse Resp B/P (MAP) Pulse Ox O2 Delivery O2 Flow Rate FiO2 01/14/21 05:10 36.5 77 18 113/56 (75) 98 Room Air 01/14/21 00:45 36.6 70 18 110/53 (72) 97 Room Air 01/13/21 21:30 36.5 74 18 109/57 (74) 99 Room Air 01/13/21 17:15 37.0 67 18 120/65 (83) 98 Room Air 01/13/21 15:15 37.0 68 18 107/68 (81) 98 Room Air 01/13/21 12:15 37.2 74 18 109/52 (71) 97 Room Air 01/13/21 10:40 35.8 109 18 109/71 (84) 100 Room Air 01/13/21 10:40 35.8 18 109/71 (84) 99 Room Air 01/13/21 10:23 35.9 18 120/92 (101) 99 Room Air 01/13/21 10:04 36.6 16 93/60 (71) 100 Room Air 01/13/21 09:47 36.5 16 111/52 (71) 100 Room Air I & O 01/14/21 07:00 Intake Total 5450 ml Output Total 1000 ml Balance 4450 ml Labs Laboratory Tests 01/14/21 05:00: White Blood Count 17.4H, Red Blood Count 3.52L, Hemoglobin 10.2L, Hematocrit 31L , Mean Corpuscular Volume 87, Mean Corpuscular Hemoglobin 29, Mean Corpuscular Hemoglobin Concent 33, Red Cell Distribution Width 13.5, Platelet Count 317, Mean Platelet Volume 11.5, Immature Granulocyte % (Auto) 1, Neutrophils (%) (Auto) 80H, Lymphocytes (%) (Auto) 12, Monocytes (%) (Auto) 6, Eosinophils (%) (Auto) 1, Basophils (%) (Auto) 0, Neutrophils # (Auto) 14.0H, Lymphocytes # (Auto) 2.1, Monocytes # (Auto) 1.0, Eosinophils # (Auto) 0.1, Basophils # (Auto) 0.1, Immature Granulocyte # (Auto) 0.2H NATI BASURTO DO January 14, 2021 08:28
[2021-01-14] MEDS: DOCUSATE SODIUM 100 MG (COLACE) CAP PO SCH ×2 (09:09→20:40)
[2021-01-14 09:11] VITALS: BP 107/65
[2021-01-14 12:04] VITALS: BP 107/62
[2021-01-14] MEDS: IBUPROFEN 600 MG (MOTRIN) TAB PO SCH ×2 (12:05→18:00)
--- NOTE | 2021-01-14 13:09 | Anesthesia-Regional Post-Op ---
Regional Patient Condition Mental Status: Alert, Oriented x3 Circulation: Same as Pre-Op Headache: Absent Sensation: Full Recovery Motor Block: Absent Post Op Complications Complications None Follow Up Care/Instructions Patient Instructions None needed. Anesthesia/Patient Condition Patient is doing well, no complaints, stable vital signs, no apparent adverse anesthesia problems. No complications reported per nursing. URIEL HERNANDEZ CRNA January 14, 2021 13:09
[2021-01-14 18:00] VITALS: BP 106/57
[2021-01-14] MEDS: ONDANSETRON 4 MG (ZOFRAN) ORAL DISSOLVE TAB PO PRN (19:30)
[2021-01-14 20:40] VITALS: BP 126/58
[2021-01-14] MEDS ORDERED: KETOROLAC 30 MG/ML VIAL ONE (23:54)
[2021-01-15] MEDS ORDERED: KETOROLAC 30 MG/ML VIAL IM ONE
[2021-01-15] MEDS ORDERED: KETOROLAC 30 MG/ML VIAL IVP ONE
[2021-01-15 00:05] VITALS: BP 106/58
[2021-01-15] MEDS: IBUPROFEN 600 MG (MOTRIN) TAB PO SCH ×3 (00:06→11:53)
[2021-01-15] MEDS: ONDANSETRON 4 MG (ZOFRAN) ORAL DISSOLVE TAB PO PRN (05:06)
[2021-01-15 05:50] VITALS: BP 111/63
[2021-01-15] MEDS: HYDROcodone/APAP 5 MG/325 MG (LORTAB) TAB PO PRN ×2 (05:50→11:53)
--- NOTE | 2021-01-15 07:14 | Postpartum Progress Note ---
Note Note Day # 2 Subjective: Patient is without complaints. Ambulating, voiding. Tolerating a regular diet without nausea or vomiting. Normal lochia. Pain is well controlled with oral pain medications. Objective: Physical Exam: General - Alert and oriented, no apparent distress Abdomen - Soft, appropriately tender to palpation, non-distended, fundus firm at umbilicus Extremities - no edema, negative Sendy's bilaterally Incision- c/d/i Assessment: POD 2 RLTCS Acute blood loss anemia Plan: Routine care. Encourage breast feeding. Encourage ambulation. Ferrous sulfate supplementation. Plan for discharge today Vitals - Labs Vital Signs - I&O Vital Signs Date Time Temp Pulse Resp B/P (MAP) Pulse Ox O2 Delivery O2 Flow Rate FiO2 01/15/21 05:50 37.0 73 18 111/63 (79) 98 Room Air 01/15/21 00:05 36.5 62 18 106/58 (74) 97 Room Air 01/14/21 20:40 36.8 74 18 126/58 (80) 97 Room Air 01/14/21 18:00 36.7 57 18 106/57 (73) 97 Room Air 01/14/21 12:04 36.5 64 18 107/62 (77) Room Air 01/14/21 09:11 36.7 80 18 107/65 (79) 98 Room Air NATI BASURTO DO January 15, 2021 07:14
[2021-01-15 09:42] VITALS: BP 118/64
[2021-01-15] MEDS: DOCUSATE SODIUM 100 MG (COLACE) CAP PO SCH (09:43)
[2021-01-15] MEDS ORDERED: ONDA4TAB11 PO (10:12)
== END 2021-01-15 13:25 | disposition home or self-care (01) | DRG 787 ==
LOC: LDRP 06:30
PROVIDERS: ADMIT Obstetrics & Gynecology; ATTEND Obstetrics & Gynecology
PROC: 10D00Z1 Extraction of Products of Conception, Low, Open Approach (ICD-10-PCS; principal; 2021-01-13 08:45)
DX: O34.211 Maternal care for low transverse scar from previous cesarean delivery (principal); D62 Acute posthemorrhagic anemia; Z3A.39 39 weeks gestation of pregnancy; Z37.0 Single live birth; O90.81 Anemia of the puerperium
CPT/HCPCS: 36415; 85007; 85025; 85027; 86850; 86900; 86901; 94664